=== PATIENT | male | born 1995 | race Caucasian/White ===

== ENCOUNTER 2024-01-24 12:07 | Emergency (ER) | payer OTHER ==
[2024-01-24] MEDS: Lidocaine 1% 10 ML MDV INJECT ONE (13:54)
[2024-01-24] MEDS: Diphtheria,Pertussis(Acell),Tetanus Vaccine 0.5 ML Syringe IM ONE (13:54)
== END 2024-01-24 13:59 | disposition home or self-care (01) ==
LOC: JD.ED 12:07
DX: S62.635B Displaced fracture of distal phalanx of left ring finger, initial encounter for open fracture (principal); Z23 Encounter for immunization; W23.0XXA Caught, crushed, jammed, or pinched between moving objects, initial encounter; Y99.0 Civilian activity done for income or pay; Y92.69 Other specified industrial and construction area as the place of occurrence of the external cause
CPT/HCPCS: 12001; 73140-26-F3; 73140-F3; 90471; 90715; 99283-25; J3490